=== PATIENT | female | born 1990 | race Caucasian/White ===

== ENCOUNTER 2018-11-28 23:07 | Emergency (ER) | payer OTHER ==
[2018-11-28 23:26] VITALS: BP 124/81; PULSE 94; RESP 18; TEMP 98.3
--- NOTE | 2018-11-28 23:56 | XR ---
EXAMINATION TYPE: XR wrist complete LT DATE OF EXAM: 11/28/2018 COMPARISON: NONE HISTORY: Wrist pain TECHNIQUE: 4 views FINDINGS: There is acute transverse fracture distal radial metaphysis. Distal ulna appears intact. Ca rpal bones are intact. Metacarpals are intact. There is no dislocation. There is mild soft tissue swe lling around the carpus. Scaphoid is intact. IMPRESSION: Acute nondisplaced fracture distal radial metaphysis.
[2018-11-29] MEDS ORDERED: IBUPROFEN 600 MG STARTER PACK 4 TAB BTL PO STA (00:34)
[2018-11-29] MEDS ORDERED: ACET/COD 300 MG/30 MG STARTER PACK 6 TAB BTL PO STA (00:34)
--- NOTE | 2018-11-29 00:37 | ED ---
Upper Extremity HPI - General Chief Complaint: Extremity Injury, Upper Stated Complaint: Fall,wrist injury Time Seen by Provider: 11/29/18 00:02 Source: patient Mode of arrival: ambulatory Limitations: physical limitation - History of Present Illness Initial Comments: 28-year-old female patient presents to the emergency department today for evaluation of left arm injury. Patient states she was at a wedding, lost her balance, and fell forward on outstretched hand. Patient states she has been having pain to the radial aspect of her left wrist since the injury. She denies any numbness or tingling to the hand. She denies hitting her head or losing consciousness. Denies any neck or back pain. Patient denies any headache, chest pain, shortness of breath, dizziness, weakness, abdominal pain, nausea, vomiting, or difficulties with bowel movements or urination. - Related Data Previous Rx's Medication Instructions Recorded Ibuprofen [Motrin] 600 mg PO Q8HR PRN #30 tab 11/29/18 Allergies Allergy/AdvReac Type Severity Reaction Status Date / Time No Known Allergies Allergy Verified 11/28/18 23:26 Review of Systems ROS Statement: Those systems with pertinent positive or pertinent negative responses have been documented in the HPI. ROS Other: All systems not noted in ROS Statement are negative. Past Medical History Past Medical History: Hypertension History of Any Multi-Drug Resistant Organisms: MRSA Date of last positivie culture/infection: 2011 MDRO Source:: right arm Past Surgical History: No Surgical Hx Reported Past Psychological History: Anxiety Smoking Status: Never smoker Past Alcohol Use History: Occasional Past Drug Use History: Marijuana General Exam Limitations: physical limitation General appearance: alert, in no apparent distress, other (This is a well- developed, well-nourished adult female patient in no acute distress. Vital signs upon presentation are temperature 98.3F, pulse 94, respirations 18, blood pressure 124/81, pulse ox 98% on room air.) Eye exam: Present: normal appearance, PERRL, EOMI. Absent: scleral icterus, conjunctival injection, periorbital swelling Neck exam: Present: normal inspection, full ROM, other (Nontender, no step-off, no deformity to firm midline palpation of the posterior cervical spine. Full range of motion without pain or limitation.). Absent: tenderness, meningismus, lymphadenopathy Respiratory exam: Present: normal lung sounds bilaterally. Absent: respiratory distress, wheezes, rales, rhonchi, stridor Cardiovascular Exam: Present: regular rate, normal rhythm, normal heart sounds. Absent: systolic murmur, diastolic murmur, rubs, gallop, clicks Extremities exam: Present: full ROM, tenderness (Tenderness over the radial aspect of the right wrist), normal capillary refill, other (No anatomical snuffbox tenderness. There is soft tissue swelling over the radial aspect of the right wrist. Patient does have full range of motion but with increased pain. Skin is otherwise pink, warm, dry. Cap refills less than 3 seconds. Radial pulses 2+ and equal bilaterally.). Absent: normal inspection, pedal edema, joint swelling, calf tenderness Back exam: Present: normal inspection, other (Nontender, no step-off, no deformity to firm midline palpation of the thoracic and lumbar vertebrae. Full range of motion without pain or limitation.). Absent: vertebral tenderness Neurological exam: Present: alert, oriented X3, CN II-XII intact Psychiatric exam: Present: normal affect, normal mood Skin exam: Present: warm, dry, intact, normal color. Absent: rash Course Vital Signs 11/28/18 23:22 Temperature 98.3 F Pulse Rate 94 Respiratory 18 Rate Blood Pressure 124/81 O2 Sat by Pulse 98 Oximetry Procedures - Orthopedic Splinting/Casting Injury #1 Side: left Upper Extremity Injury Location: short arm, wrist Upper Extremity Immobilizer: posterior splint, Mckay wrap Additional Comments: Neurovascular status intact after splint application. Skin to the fingers is pink, warm, dry. Cap refills less than 3 seconds. Patient denies numbness or tingling. Medical Decision Making - Medical Decision Making 28-year-old female patient presented to the emergency department today for evaluation of left radial wrist pain. Physical examination did reveal soft tissue swelling. No anatomical snuffbox tenderness. Neurovascular status intact. X-rays were reviewed and showed evidence for a nondisplaced distal meta physeal radial fracture. Patient was placed in a splint as documented. She'll be discharged to follow-up with post closing specialist for further evaluation. She states she is from out of town will be finding post closing specialist at home. She is given prescription for anti-inflammatory pain medication. She is given a starter pack for tylenol with codeine. Return parameters discussed in detail. She verbalizes understanding and agrees with this plan. - Radiology Data Radiology results: report reviewed, image reviewed 4 views of the left wrist are obtained. Report was reviewed in its entirety. Impression by Dr. Sandoval shows acute nondisplaced fracture of the distal radial metaphysis Disposition Clinical Impression: Left radial fracture Disposition: HOME SELF-CARE Condition: Good Instructions (If sedation given, give patient instructions): Arm Fracture in Adults (ED), Splint Care (ED) Additional Instructions: Leave splint in place until follow-up with orthopedics. Rest, ice, elevate the extremity. Take medication as directed for pain control. Follow-up with post closing specialist for further evaluation 1-2 days. Return to the emergency department immediately for any new, worsening, or concerning symptoms. Prescriptions: Ibuprofen [Motrin] 600 mg PO Q8HR PRN #30 tab PRN Reason: Pain Is patient prescribed a controlled substance at d/c from ED?: No Referrals: Solo Lerner MD [STAFF PHYSICIAN] - 1-2 days Time of Disposition: 00:36
== END 2018-11-29 01:32 | disposition home or self-care (01) ==
LOC: EC 23:07
DX: S52.502D Unspecified fracture of the lower end of left radius, subsequent encounter for closed fracture with routine healing (principal); Z86.14 Personal history of Methicillin resistant Staphylococcus aureus infection; W01.0XXD Fall on same level from slipping, tripping and stumbling without subsequent striking against object, subsequent encounter; Y93.41 Activity, dancing; Y92.89 Other specified places as the place of occurrence of the external cause
CPT/HCPCS: 29125; 99283